=== PATIENT | female | born 1935 | race Caucasian/White ===

== ENCOUNTER 2016-07-06 15:47 | Inpatient (IN) | payer OTHER, MEDICARE ==
[~2016-07-06] VITALS: Ht 149.9 cm; Wt 46.2 kg
[~2016-07-06 15:47] MED LIST: ALPR.25 PO; AMLO10 PO; ARTISOL2 EACH EYE; CEFT500T3 PO; COLA100C3 PO; DOCU100C PO; LEVA750T PO; MACR100C2 PO; MEGE40TA PO; METO25TA3 PO; MULT-135 PO; PANT40TA3 PO; PRED20 PO
[2016-07-06] MEDS ORDERED: SODIUM CHLORIDE 0.9% FLUSH 5 ML FLUSH IVF PRN (16:45)
[2016-07-06 17:24] VITALS: BP 136/77; PULSE 94; RESP 12; TEMP 97.1; O2SAT 97
[2016-07-06 17:33] LABS: AUTOMATED NEUTROPHIL # 8.9 TH/MM3 (1.8-7.7); BASOPHIL # 0.1 TH/MM3 (0-0.2); BASOPHIL % 0.5 % (0.0-2.0); EOSINOPHIL % 0.3 % (0.0-4.0); HEMATOCRIT 39.9 % (35.0-46.0); HEMO FLAGS DIFF FINAL; LYMPH % 21.7 % (9.0-44.0); LYMPHOCYTE # 2.7 TH/MM3 (1.0-4.8); MEAN CELL VOLUME 92.2 FL (80.0-100.0); MEAN CORPUSCULAR HEMOGLOBIN 32.3 PG (27.0-34.0); MONO % 5.9 % (0.0-8.0); NEUT % 71.6 % (16.0-70.0); PLATELET COUNT 128 TH/MM3 (150-450); RED BLOOD COUNT 4.32 MIL/MM3 (4.00-5.30); WHITE BLOOD COUNT 12.5 TH/MM3 (4.0-11.0)
[2016-07-06 17:46] LABS: APTT (PATIENT) 23.8 SEC (24.3-30.1); INTERNATIONAL NORMALIZED RATIO 1.1 RATIO; PROTHROMBIN TIME - PATIENT 12.1 SEC (9.8-11.6)
--- NOTE | 2016-07-06 17:49 | PD ---
HPI Chief Complaint: General Weakness Time Seen by Provider: 17:47 Travel History International Travel<30 days: No Contact w/Intl Traveler<30days: No Traveled to known affect area: No History of Present Illness HPI 81-year-old female brought in by ambulance from her home where she has home health, status post stroke and decreased ability to take care of herself. Patient was sent in due to "failure to thrive". Patient has not been eating or drinking. She states there is a lot of discourse in the home with her [id number] which causes her to be very anxious and causes her to not want to eat. She denies any pain, Fever, nausea, vomiting, abdominal pain, or other constitutional symptoms. She denies urinary symptoms. EMS reports that her heart rate was elevated upon arrival of 180 beats per minute. Patient was given a saline bolus of 1000 mL was in her heart rate decreased to 110 bpm. Patient has no known drug allergies. PFSH Past Medical History Arthritis: No Asthma: No Autoimmune Disease: No Blood Disorders: No Anxiety: No Depression: No Heart Rhythm Problems: Yes (new atrial fibrillation) Cancer: Yes (TONGUE, SKIN CA) Cardiovascular Problems: Yes (EF 50-55%) High Cholesterol: No Chemotherapy: No Chest Pain: No Congestive Heart Failure: No COPD: No Cerebrovascular Accident: Yes Diabetes: No Diminished Hearing: No Endocrine: No Gastrointestinal Disorders: Yes (constipation) GERD: No Genitourinary: Yes (UTI, incontinence) Headaches: No Hiatal Hernia: No Heparin Induced Thrombocytopen: No Hypertension: Yes (AMLODIPINE, HTN Urgency) Immune Disorder: No Implanted Vascular Access Dvce: Yes Kidney Stones: No Musculoskeletal: No Neurologic: Yes (acute left basal ganglia hemorrhage, dysarthria, dyspagia) Psychiatric: No Reproductive: No Migraines: No Radiation Therapy: No Renal Failure: No Seizures: No Sickle Cell Disease: No Sleep Apnea: No Thyroid Disease: No Ulcer: No Menopausal: Yes Past Surgical History Abdominal Surgery: No AICD: No Arteriovenous Shunt: No Cardiac Surgery: No Ear Surgery: No Endocrine Surgery: No Eye Surgery: No Genitourinary Surgery: No Gynecologic Surgery: Yes (hysterectomy) Hysterectomy: Yes Insulin Pump: No Joint Replacement: Yes (LT HIP DAVE) Neurologic Surgery: No Oral Surgery: Yes (CA OF TONGUE 20YEARS AGO) Pacemaker: No Thoracic Surgery: No Other Surgery: Yes Social History Alcohol Use: Yes (A GLASS A DAY) Tobacco Use: No (10 CIGARETTES A DAY) Substance Use: No Allergies-Medications (Allergen,Severity, Reaction): Coded Allergies: No Known Allergies (Verified , 02/02/16) Reported Meds & Prescriptions Reported Meds & Active Scripts Active Prednisone 20 Mg Tab 20 Mg PO BID 8 Days Levaquin (Levofloxacin) 750 Mg Tab 750 Mg PO DAILY 6 Days Ceftin (Cefuroxime Axetil) 500 Mg Tab 500 Mg PO BID 3 Days Reported Pantoprazole (Pantoprazole Sodium) 40 Mg Tab 40 Mg PO DAILY Xanax (Alprazolam) 0.25 Mg Tab 0.25 Mg PO Q8H PRN Norvasc (Amlodipine Besylate) 10 Mg Tab 10 Mg PO DAILY Multi Vitamin (Multiple Vitamin) 1 Tab Tab 1 Tab PO DAILY Docusate Sodium 100 Mg Cap 100 Mg PO BID Metoprolol Tartrate 25 Mg Tab 25 Mg PO BID Macrobid (Nitrofurantoin Monoh/Nitrofur Macro) 100 Mg Cap 100 Mg PO BID Colace (Docusate Sodium) 100 Mg Cap 100 Mg PO BID Megestrol (Megestrol Acetate) 40 Mg Tab 40 Mg PO BID Artificial Tears Opth Drops (Artificial Tear Solution Opth Drops) 0.1-0.3% Soln 1.4 EACH EYE Q4HR Physical Exam Narrative GENERAL: Patient appears in no obvious distress. SKIN: Warm and dry. Normal color. Poor turgor with tenting present. HEAD: Atraumatic. Normocephalic. EYES: Pupils equal and round. No scleral icterus. No injection or drainage. ENT: No nasal bleeding or discharge. Mucous membranes pink and dry. Pharynx is normal. Airway is patent. NECK: Trachea midline. No JVD. Neck is supple and nontender. CARDIOVASCULAR: Irregular rate and rhythm. No murmurs appreciated time of exam. RESPIRATORY: No accessory muscle use. Clear to auscultation. Breath sounds equal bilaterally. GASTROINTESTINAL: Abdomen soft, non-tender, nondistended. Hepatic and splenic margins not palpable. MUSCULOSKELETAL: Extremities without clubbing, cyanosis, or edema. No obvious deformities. NEUROLOGICAL: Awake and alert. No obvious cranial nerve deficits. Patient has right-sided weakness in the lower extremity and mildly in the right hand and arm. Normal speech. PSYCHIATRIC: Appropriate mood and affect; insight and judgment normal. Data Data Last Documented VS Vital Signs Date Time Temp Pulse Resp B/P Pulse Ox O2 Delivery O2 Flow Rate FiO2 07/06/16 22:30 87 22 135/77 94 Room Air 07/06/16 17:24 97.1 Orders Electrocardiogram (07/06/16 16:41) B-Type Natriuretic Peptide (07/06/16 16:41) Ckmb (Isoenzyme) Profile (07/06/16 16:41) Complete Blood Count With Diff (07/06/16 16:41) Comprehensive Metabolic Panel (07/06/16 16:41) Magnesium (Mg) (07/06/16 16:41) Prothrombin Time / Inr (Pt) (07/06/16 16:41) Act Partial Throm Time (Ptt) (07/06/16 16:41) Troponin I (07/06/16 16:41) Ecg Monitoring (07/06/16 16:41) Bilateral Bp Monitoring (07/06/16 16:41) Iv Access Insert/Monitor (07/06/16 16:41) Oximetry (07/06/16 16:41) Oxygen Administration (07/06/16 16:41) Sodium Chloride 0.9% Flush (Ns Flush) (07/06/16 16:45) Cath For Specimen (07/06/16 16:41) Urinalysis - C+S If Indicated (07/06/16 20:20) Chest, Single Ap (07/06/16 ) Labs Laboratory Tests Test 07/06/16 17:09 White Blood Count 12.5 TH/MM3 Red Blood Count 4.32 MIL/MM3 Hemoglobin 13.9 GM/DL Hematocrit 39.9 % Mean Corpuscular Volume 92.2 FL Mean Corpuscular Hemoglobin 32.3 PG Mean Corpuscular Hemoglobin 35.0 % Concent Red Cell Distribution Width 14.0 % Platelet Count 128 TH/MM3 Mean Platelet Volume 9.2 FL Neutrophils (%) (Auto) 71.6 % Lymphocytes (%) (Auto) 21.7 % Monocytes (%) (Auto) 5.9 % Eosinophils (%) (Auto) 0.3 % Basophils (%) (Auto) 0.5 % Neutrophils # (Auto) 8.9 TH/MM3 Lymphocytes # (Auto) 2.7 TH/MM3 Monocytes # (Auto) 0.7 TH/MM3 Eosinophils # (Auto) 0.0 TH/MM3 Basophils # (Auto) 0.1 TH/MM3 CBC Comment DIFF FINAL Differential Comment Prothrombin Time 12.1 SEC Prothromb Time International 1.1 RATIO Ratio Activated Partial 23.8 SEC Thromboplast Time Sodium Level 135 MEQ/L Potassium Level 3.2 MEQ/L Chloride Level 98 MEQ/L Carbon Dioxide Level 24.7 MEQ/L Anion Gap 12 MEQ/L Blood Urea Nitrogen 16 MG/DL Creatinine 1.02 MG/DL Estimat Glomerular Filtration 52 ML/MIN Rate Random Glucose 91 MG/DL Calcium Level 8.8 MG/DL Magnesium Level 2.1 MG/DL Total Bilirubin 0.4 MG/DL Aspartate Amino Transf 15 U/L (AST/SGOT) Alanine Aminotransferase 14 U/L (ALT/SGPT) Alkaline Phosphatase 66 U/L Total Creatine Kinase 58 U/L Troponin I 0.05 NG/ML B-Type Natriuretic Peptide 82 PG/ML Total Protein 7.3 GM/DL Albumin 3.3 GM/DL [facility] Medical Decision Making Medical Screen Exam Complete: Yes Emergency Medical Condition: Yes Differential Diagnosis Dehydration. Loss of appetite. Weakness. History CVA. Narrative Course Patient is medically stable at time of exam. EKG is ordered. Labs ordered including CBC, CMP, urinalysis, proBNP, PT PTT and INR. Chest x-ray is ordered. Chest x-ray shows diffuse increased interstitial markings suggestive of edema. Patient is moved to echo pod and discussed with Dr. Martin, who sees the patient as well. 2300 hrs. patient continues to be stable, urinalysis is still pending. CBC shows mild leukocytosis of 12.5 otherwise no acute findings. Chemistry shows sodium 135, potassium 3.2, creatinine is 1.02, and albumin is 3.3. Coags show PT of 12.1, INR 1.1 Patient care is assumed by Dr. Martin at 2300 hrs. She will determine disposition. Condition: Stable Mauricio Kim Jul 06, 2016 17:49
[2016-07-06 17:52] LABS: ANION GAP 12 MEQ/L (5-15); AST (GOT) 15 U/L (15-37); BICARBONATE 24.7 MEQ/L (21.0-32.0); BLOOD UREA NITROGEN 16 MG/DL (7-18); CHLORIDE 98 MEQ/L (98-107); GLOMERULAR FILTRATION RATE 52 ML/MIN (>89); MAGNESIUM 2.1 MG/DL (1.5-2.5); POTASSIUM 3.2 MEQ/L (3.5-5.1); SODIUM (NA) 135 MEQ/L (136-145)
[2016-07-06 17:57] LABS: ALKALINE PHOSPHATASE 66 U/L (45-117); ALT (GPT) 14 U/L (10-53); TOTAL BILIRUBIN ADULT 0.4 MG/DL (0.2-1.0)
[2016-07-06 18:00] LABS: CREATINE KINASE 58 U/L (26-192)
--- NOTE | 2016-07-06 21:01 | RADRPT ---
EXAM DATE/TIME: 07/06/2016 20:39 [facility] COMPARISON: CHEST SINGLE AP, March 25, 2016, 13:09. INDICATIONS : Short of breath. MEDICAL HISTORY : Stroke. SURGICAL HISTORY : None. ENCOUNTER: Initial ACUITY: 1 week PAIN SCORE: 0/10 LOCATION: Bilateral chest FINDINGS: The heart size is normal. The lungs demonstrate diffuse increased interstitial markings. Significan t effusions are not seen. Calcifications are seen at the aortic arch. The aortic arch appears widene d. CONCLUSION: Diffuse increased interstitial markings likely representing edema. Damion Johnson MD on July 06, 2016 at 20:53 Board Certified Radiologist. This report was verified electronically.
--- NOTE | 2016-07-06 21:19 | PD ---
Physical Exam Date Seen by Provider: Jul 06, 2016 Time Seen by Provider: 20:10 Narrative The patient was brought to us by [facility] for failure to thrive. Data Data Last Documented VS Vital Signs Date Time Temp Pulse Resp B/P Pulse Ox O2 Delivery O2 Flow Rate FiO2 07/07/16 00:33 78 22 122/71 94 Room Air 07/06/16 17:24 97.1 Orders Electrocardiogram (07/06/16 16:41) B-Type Natriuretic Peptide (07/06/16 16:41) Ckmb (Isoenzyme) Profile (07/06/16 16:41) Complete Blood Count With Diff (07/06/16 16:41) Comprehensive Metabolic Panel (07/06/16 16:41) Magnesium (Mg) (07/06/16 16:41) Prothrombin Time / Inr (Pt) (07/06/16 16:41) Act Partial Throm Time (Ptt) (07/06/16 16:41) Troponin I (07/06/16 16:41) Ecg Monitoring (07/06/16 16:41) Bilateral Bp Monitoring (07/06/16 16:41) Iv Access Insert/Monitor (07/06/16 16:41) Oximetry (07/06/16 16:41) Oxygen Administration (07/06/16 16:41) Sodium Chloride 0.9% Flush (Ns Flush) (07/06/16 16:45) Cath For Specimen (07/06/16 16:41) Urinalysis - C+S If Indicated (07/06/16 20:20) Chest, Single Ap (07/06/16 ) Sodium Chlor 0.9% 1000 Ml Inj (Ns 1000 M (07/07/16 00:30) Urine Culture (07/07/16 01:13) Ceftriaxone Inj (Rocephin Inj) (07/07/16 01:45) Labs Laboratory Tests Test 07/06/16 07/07/16 17:09 01:13 White Blood Count 12.5 TH/MM3 Red Blood Count 4.32 MIL/MM3 Hemoglobin 13.9 GM/DL Hematocrit 39.9 % Mean Corpuscular Volume 92.2 FL Mean Corpuscular Hemoglobin 32.3 PG Mean Corpuscular Hemoglobin 35.0 % Concent Red Cell Distribution Width 14.0 % Platelet Count 128 TH/MM3 Mean Platelet Volume 9.2 FL Neutrophils (%) (Auto) 71.6 % Lymphocytes (%) (Auto) 21.7 % Monocytes (%) (Auto) 5.9 % Eosinophils (%) (Auto) 0.3 % Basophils (%) (Auto) 0.5 % Neutrophils # (Auto) 8.9 TH/MM3 Lymphocytes # (Auto) 2.7 TH/MM3 Monocytes # (Auto) 0.7 TH/MM3 Eosinophils # (Auto) 0.0 TH/MM3 Basophils # (Auto) 0.1 TH/MM3 CBC Comment DIFF FINAL Differential Comment Prothrombin Time 12.1 SEC Prothromb Time International 1.1 RATIO Ratio Activated Partial 23.8 SEC Thromboplast Time Sodium Level 135 MEQ/L Potassium Level 3.2 MEQ/L Chloride Level 98 MEQ/L Carbon Dioxide Level 24.7 MEQ/L Anion Gap 12 MEQ/L Blood Urea Nitrogen 16 MG/DL Creatinine 1.02 MG/DL Estimat Glomerular Filtration 52 ML/MIN Rate Random Glucose 91 MG/DL Calcium Level 8.8 MG/DL Magnesium Level 2.1 MG/DL Total Bilirubin 0.4 MG/DL Aspartate Amino Transf 15 U/L (AST/SGOT) Alanine Aminotransferase 14 U/L (ALT/SGPT) Alkaline Phosphatase 66 U/L Total Creatine Kinase 58 U/L Troponin I 0.05 NG/ML B-Type Natriuretic Peptide 82 PG/ML Total Protein 7.3 GM/DL Albumin 3.3 GM/DL Urine Color LIGHT-YELLOW Urine Turbidity HAZY Urine pH 7.0 Urine Specific [place] 1.009 Urine Protein NEG mg/dL Urine Glucose (UA) NEG mg/dL Urine Ketones NEG mg/dL Urine Occult Blood TRACE Urine Nitrite POS Urine Bilirubin NEG Urine Urobilinogen LESS THAN 2.0 MG/DL Urine Leukocyte Esterase LARGE Urine RBC 3 /hpf Urine WBC /hpf Urine WBC Clumps FEW Urine Bacteria MANY /hpf Microscopic Urinalysis Comment CATH-CULTURE IND MDM Supervised Visit with JESSI: Yes Narrative Course I, Dr. Martin, have reviewed the advance practice practitioner's documentation and am in agreement, met with the patient face to face, made the diagnosis, and the medical decision making was done by me. *My assessment and Findings: The patient is awake and alert and complaining that she is hungry and tired. Her lungs sounded clear. She was able to speak in complete sentences without any respiratory distress. Diagnosis Primary Impression: UTI (urinary tract infection) Qualified Code: N30.00 - Acute cystitis without hematuria Admitting Information Admitting Physician Requests: Observation Condition: Stable Yolanda Martin MD Jul 06, 2016 21:19
[2016-07-06 22:30] VITALS: BP 135/77; PULSE 87; RESP 22; O2SAT 94
[2016-07-06] MEDS ORDERED: FURO20TA PO (23:36)
[2016-07-06] MEDS ORDERED: POTA-243 PO (23:36)
[2016-07-07] MEDS ORDERED: SODIUM CHLOR 0.9% 1000 ML INJ 1,000 ML IV ONE (00:30)
[2016-07-07 00:33] VITALS: BP 122/71; PULSE 78; RESP 22; O2SAT 94
[2016-07-07 01:36] LABS: BACTERIA, URINE MANY /hpf; BLOOD, URINE TRACE (NEG); GLUCOSE,URINE NEG (NEG); KETONE, URINE NEG (NEG); NITRITE,URINE POS (NEG); URINE COLOR LIGHT-YELLOW (YELLW/STRAW)
[2016-07-07 01:37] LABS: COMMENT (UR) CATH-CULTURE IND; CULTURE IF INDICATED CATH CULTURE IND
[2016-07-07] MEDS ORDERED: cefTRIAXone INJ 1,000 MG in SODIUM CHLORIDE 0.9% INJ 100 ML IV ONE (01:45)
[2016-07-07] MEDS ORDERED: SODIUM CHLOR 0.9% 1000 ML INJ 1,000 ML IV SCH (01:51)
[2016-07-07] MEDS ORDERED: ACETAMINOPHEN/HYDROcodone 325 MG/5 MG TAB PO PRN (02:00)
[2016-07-07] MEDS ORDERED: ALPRAZolam 0.25 MG TAB PO PRN (02:00)
[2016-07-07] MEDS ORDERED: ACETAMINOPHEN/HYDROcodone 325 MG/10 MG TAB PO PRN (02:00)
[2016-07-07] MEDS ORDERED: ONDANSETRON HCL 4 MG/2 ML VIAL IVP PRN (02:00)
[2016-07-07] MEDS ORDERED: SODIUM CHLORIDE 0.9% FLUSH 5 ML FLUSH FLUSH PRN (02:00)
[2016-07-07] MEDS ORDERED: ACETAMINOPHEN 325 MG TAB PO PRN (02:00)
[2016-07-07] MEDS ORDERED: BISACODYL 10 MG SUPP PR PRN (02:00)
[2016-07-07 03:48] VITALS: BP 117/64; PULSE 69; RESP 18; O2SAT 95
--- NOTE | 2016-07-07 04:37 | HHI.HP ---
HPI Service [facility] Primary Care Physician Jose Cruz Arellano MD Admission Diagnosis UTI Diagnoses: (1) UTI (urinary tract infection) Diagnosis: Principal (2) Hypokalemia Diagnosis: Principal (3) Renal insufficiency Diagnosis: Principal Travel History International Travel<30 Days: No Contact w/Intl Traveler <30 Da: No Traveled to Known Affected Are: No History of Present Illness This is an 81-year-old female with a PMH of A. fib, CHF (Echo 01/31/16 w/ EF 50- 55%), HTN and h/o CVA who was brought to the ER by EMS for Failure to Thrive. Currently under Home Health after CVA, noted by RN to have decreased PO intake x1 wk. Denies fever, chills, abdominal pain, nausea, vomiting or diarrhea. On arrival, BP 136/77, HR 94, O2 sat 97% on RA, Afebrile. WBC 12.5. K+ 3.2. Creatinine 1.02, previously 0.65 on 03/28/16. UA positive for UTI. CXR with diffuse increased interstitial markings likely representing edema. S/p Urine Culture and IV Rocephin in ER. Review of Systems Except as stated in HPI: all other systems reviewed are Neg ROS: 14 point review of systems otherwise negative. Past Family Social History Past Medical History PMH: A. fib, CHF (Echo 01/31/16 w/ EF 50-55%), HTN and h/o CVA Past Surgical History PAST SURGICAL HISTORY: Hysterectomy, Left Hip Surgery, Glossectomy Allergies: Coded Allergies: No Known Allergies (Verified , 02/02/16) Family History PAST FAMILY HISTORY: Reviewed. No h/o DM or CAD Social History PAST SOCIAL HISTORY: Drinks glass of wine daily. Smokes 1/2ppd. Negative for drugs. Physical Exam Vital Signs Vital Signs Date Time Temp Pulse Resp B/P Pulse Ox O2 Delivery O2 Flow Rate FiO2 07/07/16 03:48 69 18 117/64 95 Room Air 07/07/16 00:33 78 22 122/71 94 Room Air 07/06/16 22:30 87 22 135/77 94 Room Air 07/06/16 17:24 97.1 94 12 136/77 97 Room Air Physical Exam PE: GENERAL: Elderly female in no acute distress. HEENT: PERRLA, EOMI. No scleral icterus or conjunctival pallor. No lid lag or facial droop. CARDIOVASCULAR: Regular rate and rhythm. No obvious murmurs to auscultation. No chest tenderness to palpation. RESPIRATORY: No obvious rhonchi or wheezing. Clear to auscultation. Breath sounds equal bilaterally. GASTROINTESTINAL: Abdomen soft, non-tender, nondistended. BS normal. MUSCULOSKELETAL: Extremities without clubbing, cyanosis, or edema. No obvious deformities. NEUROLOGICAL: Awake, alert and oriented x4. Right hemiparesis, at baseline. No new focal neurologic deficits. Moving both upper and lower extremities spontaneously. Laboratory Laboratory Tests Test 07/06/16 07/07/16 17:09 01:13 White Blood Count 12.5 Red Blood Count 4.32 Hemoglobin 13.9 Hematocrit 39.9 Mean Corpuscular Volume 92.2 Mean Corpuscular Hemoglobin 32.3 Mean Corpuscular Hemoglobin 35.0 Concent Red Cell Distribution Width 14.0 Platelet Count 128 Mean Platelet Volume 9.2 Neutrophils (%) (Auto) 71.6 Lymphocytes (%) (Auto) 21.7 Monocytes (%) (Auto) 5.9 Eosinophils (%) (Auto) 0.3 Basophils (%) (Auto) 0.5 Neutrophils # (Auto) 8.9 Lymphocytes # (Auto) 2.7 Monocytes # (Auto) 0.7 Eosinophils # (Auto) 0.0 Basophils # (Auto) 0.1 CBC Comment DIFF FINAL Differential Comment Prothrombin Time 12.1 Prothromb Time International 1.1 Ratio Activated Partial 23.8 Thromboplast Time Sodium Level 135 Potassium Level 3.2 Chloride Level 98 Carbon Dioxide Level 24.7 Anion Gap 12 Blood Urea Nitrogen 16 Creatinine 1.02 Estimat Glomerular Filtration 52 Rate Random Glucose 91 Calcium Level 8.8 Magnesium Level 2.1 Total Bilirubin 0.4 Aspartate Amino Transf 15 (AST/SGOT) Alanine Aminotransferase 14 (ALT/SGPT) Alkaline Phosphatase 66 Total Creatine Kinase 58 Troponin I 0.05 B-Type Natriuretic Peptide 82 Total Protein 7.3 Albumin 3.3 Urine Color LIGHT-YELLOW Urine Turbidity HAZY Urine pH 7.0 Urine Specific [place] 1.009 Urine Protein NEG Urine Glucose (UA) NEG Urine Ketones NEG Urine Occult Blood TRACE Urine Nitrite POS Urine Bilirubin NEG Urine Urobilinogen LESS THAN 2.0 Urine Leukocyte Esterase LARGE Urine RBC 3 Urine WBC Urine WBC Clumps FEW Urine Bacteria MANY Microscopic Urinalysis Comment CATH-CULTURE IND Date/Time Procedure Status Source Growth 07/07/16 01:13 Urine Culture Received Urine Catheterized Urine Pending Result Diagram: 07/06/16 [id number] Assessment and Plan Problem List: (1) UTI (urinary tract infection) ICD Code: N39.0 Status: Acute (2) Renal insufficiency ICD Code: N28.9 Status: Acute (3) Hypokalemia ICD Code: E87.6 Status: Acute Assessment and Plan A/P: 1. UTI: U/a w/ UTI, WBC 12.5, Afebrile. S/p Urine Culture, IV Rocephin in ER. Follow up cultures, continue IV Rocephin, IVF for hydration-caution w/ h/o CHF. 2. Hypokalemia: K+ 3.2, will replace and recheck as needed. 3. MILTON: Creatinine 1.02, previously 0.65 on 03/28/16, likely secondary to acute UTI and dehydration from decreased PO intake. IVF, repeat labs in am. 4. FTT: Likely secondary to above, however will ask PT to eval. 5. DVT Prophylaxis: SCD/Teds. 6. Social work for d/c planning as needed. 7. Case discussed w/ ER physician at length. Problem Qualifiers (1) UTI (urinary tract infection): Qualified Code: N30.00 - Acute cystitis without hematuria Shelly Argueta MD Jul 07, 2016 04:37
[2016-07-07] MEDS ORDERED: POTASSIUM CHLORIDE 20 MEQ CONTROLLED RELEASE TAB PO ONE (08:00)
[2016-07-07] MEDS: METOPROLOL TARTRATE 25 MG TAB PO SCH ×2 (08:59→21:18)
[2016-07-07] MEDS: SODIUM CHLORIDE 0.9% FLUSH 5 ML FLUSH FLUSH SCH ×2 (08:59→21:22)
[2016-07-07] MEDS: PANTOPRAZOLE SOD 40 MG DELAYED RELEASE TAB PO SCH (08:59)
[2016-07-07] MEDS: DOCUSATE SODIUM 100 MG CAP PO SCH ×2 (08:59→21:00)
--- NOTE | 2016-07-07 09:16 | HHI.PR ---
Subjective Remarks Follow-up for failure to thrive. The patient states that medically she is doing well, but has not been doing well lately. She reports that she's been very weak at home and requiring a lot of help. She normally has to use a wheelchair to get around. She does not feel safe going home alone. She denies any chest pain, shortness of breath, dysuria. She states that she was taking Lasix because her legs were swelling and that caused her urinary frequency. Objective Vitals Vital Signs Date Time Temp Pulse Resp B/P Pulse Ox O2 Delivery O2 Flow Rate FiO2 07/07/16 03:48 69 18 117/64 95 Room Air 07/07/16 00:33 78 22 122/71 94 Room Air 07/06/16 22:30 87 22 135/77 94 Room Air 07/06/16 17:24 97.1 94 12 136/77 97 Room Air Result Diagram: 07/06/16 1709 07/06/16 1709 Imaging Last Impressions Chest X-Ray 07/06/16 0000 Signed Impressions: Service Date/Time: June 20:39 - CONCLUSION: Diffuse increased interstitial markings likely representing edema. Damion Johnson MD Objective Remarks GENERAL: Pleasant, frail elderly lady. In no acute distress. SKIN: Warm and dry. No lesions noted. HEENT: Normocephalic. Pupils equal and round. Mucous membranes pink and moist. CARDIOVASCULAR: Regular rate and rhythm. No murmur appreciated. RESPIRATORY: No accessory muscle use. Clear to auscultation. Breath sounds equal bilaterally. GASTROINTESTINAL: Abdomen soft, non-tender, nondistended. Bowel sounds x4. MUSCULOSKELETAL: No obvious deformities. No clubbing or cyanosis. No edema. NEUROLOGICAL: Awake and alert. No focal neurological deficits. Moves upper and lower extremities spontaneously. Normal speech. PSYCHIATRIC: Appropriate mood and affect; insight and judgment normal. A/P Problem List: (1) UTI (urinary tract infection) ICD Code: N39.0 Status: Acute (2) Renal insufficiency ICD Code: N28.9 Status: Acute (3) Hypokalemia ICD Code: E87.6 Status: Acute Assessment and Plan 81-year-old female with a PMH of A. fib, CHF (Echo 01/31/16 w/ EF 50-55%), HTN and h/o CVA who presented for Failure to Thrive UTI with sepsis: U/a w/ UTI, WBC 12.5, Afebrile. WBC 12.5 and tachycardic upon admission. Continue IV Rocephin. Follow up urine culture. Caution with IVF and h/o CHF. Hypokalemia: K+ 3.2, replace orally. MILTON: Creatinine 1.02, previously 0.65 on 03/28/16. Chest x-ray with possible edema, however BNP 82 and patient appears clinically dry. Given IVF, DC. Hold Lasix. Repeat labs in am. FTT: Likely secondary to above infection and dehydration. PT to eval. Case management consult. DVT Prophylaxis: SCD/Teds. Discharge Planning Likely needs SNF at DC. Admit for urosepsis. Plan of care discussed with Dr. Quinones. Problem Qualifiers (1) UTI (urinary tract infection): Qualified Code: N30.00 - Acute cystitis without hematuria Noam Fermin Jul 07, 2016 9:16 am Uri Quinones DO Jul 07, 2016 3:38 pm
[2016-07-07 12:52] VITALS: BP 124/79; PULSE 68; RESP 18; O2SAT 100
[2016-07-07 13:45] VITALS: BP 136/72; PULSE 71; RESP 20; TEMP 96.8; O2SAT 96
[2016-07-07 16:00] VITALS: BP 121/79; PULSE 74; RESP 18; TEMP 96.7; O2SAT 95
--- NOTE | 2016-07-07 17:01 | EKG ---
Date Performed: 07/06/2016 Time Performed: 22:28:50 PTAGE: 81 years EKG: Sinus rhythm Compared to prior tracing no significant change NORMAL ECG PREVIOUS TRACING : 03/25/2016 23.59 DOCTOR: Kaiden Wagoner Interpretating Date/Time 07/07/2016 16:55:47
[2016-07-07 20:00] VITALS: BP 136/73; PULSE 69; RESP 16; TEMP 96; O2SAT 96
[2016-07-07] MEDS: cefTRIAXone INJ 1,000 MG in SODIUM CHLORIDE 0.9% INJ 100 ML IV SCH (22:14)
[2016-07-08] VITALS (7 sets, daily range): BP systolic 109–133; BP diastolic 59–77; PULSE 65–72; RESP 16–18; TEMP 96.1–97.1; O2SAT 92–96
[2016-07-08] MEDS: PANTOPRAZOLE SOD 40 MG DELAYED RELEASE TAB PO SCH (08:50)
[2016-07-08] MEDS: METOPROLOL TARTRATE 25 MG TAB PO SCH ×2 (08:50→21:01)
[2016-07-08] MEDS: DOCUSATE SODIUM 100 MG CAP PO SCH ×2 (08:53→21:00)
[2016-07-08] MEDS: SODIUM CHLORIDE 0.9% FLUSH 5 ML FLUSH FLUSH SCH ×2 (09:00→21:01)
[2016-07-08 09:44] LABS: AUTOMATED NEUTROPHIL # 5.9 TH/MM3 (1.8-7.7); BASOPHIL # 0.1 TH/MM3 (0-0.2); BASOPHIL % 1.2 % (0.0-2.0); EOSINOPHIL # 0.2 TH/MM3 (0-0.4); EOSINOPHIL % 1.7 % (0.0-4.0); HEMATOCRIT 41.4 % (35.0-46.0); HEMO FLAGS DIFF FINAL; LYMPH % 26.3 % (9.0-44.0); LYMPHOCYTE # 2.4 TH/MM3 (1.0-4.8); MEAN CELL VOLUME 93.9 FL (80.0-100.0); MEAN CORPUSCULAR HEMOGLOBIN 31.9 PG (27.0-34.0); MONO % 6.4 % (0.0-8.0); NEUT % 64.4 % (16.0-70.0); PLATELET COUNT 124 TH/MM3 (150-450); RED BLOOD COUNT 4.41 MIL/MM3 (4.00-5.30); RED CELL DISTRIBUTION WIDTH 13.5 % (11.6-17.2); WHITE BLOOD COUNT 9.2 TH/MM3 (4.0-11.0)
[2016-07-08 09:55] LABS: ALKALINE PHOSPHATASE 67 U/L (45-117); ALT (GPT) 13 U/L (10-53); ANION GAP 11 MEQ/L (5-15); AST (GOT) 16 U/L (15-37); BICARBONATE 21.4 MEQ/L (21.0-32.0); BLOOD UREA NITROGEN 8 MG/DL (7-18); CHLORIDE 103 MEQ/L (98-107); GLOMERULAR FILTRATION RATE 89 ML/MIN (>89); POTASSIUM 3.1 MEQ/L (3.5-5.1); SODIUM (NA) 135 MEQ/L (136-145); TOTAL BILIRUBIN ADULT 0.4 MG/DL (0.2-1.0)
--- NOTE | 2016-07-08 16:04 | HHI.PR ---
Subjective Remarks Follow up for UTI, failure to thrive. Patient was living with her son and daughter in law. She has been having arguments for sometime and does not feel comfortable going back. She wants to go to a rehab and from there she wants to go to [place] to live with her other son. Currently she denies any chest pain , shortness of breath, fever, chills. Objective Vitals Vital Signs Date Time Temp Pulse Resp B/P Pulse Ox O2 Delivery O2 Flow Rate FiO2 07/08/16 12:00 65 18 109/70 95 07/08/16 08:00 96.4 68 18 123/59 93 07/08/16 04:00 96.2 70 16 130/73 95 07/08/16 01:11 96 Nasal Cannula 07/08/16 00:00 96.1 72 16 133/77 95 07/07/16 20:00 96.0 69 16 136/73 96 I/O 07/07/16 07/07/16 07/07/16 07/08/16 07/08/16 07/08/16 07:00 15:00 23:00 07:00 15:00 23:00 Intake Total 998 ml 726 ml 787 ml 480 ml Output Total 400 ml Balance 998 ml 726 ml 387 ml 480 ml Intake Oral 240 ml 240 ml 480 ml IV Total 998 ml 486 ml 547 ml Output Urine Total 400 ml # Voids 1 2 Result Diagram: 07/08/16 0900 07/08/16 0900 Imaging Last Impressions Chest X-Ray 07/06/16 0000 Signed Impressions: Service Date/Time: June 20:39 - CONCLUSION: Diffuse increased interstitial markings likely representing edema. Damion Johnson MD Objective Remarks GENERAL: Alert, NAD. SKIN: Warm and dry. HEAD: Normocephalic. EYES: No scleral icterus. No injection or drainage. NECK: Supple, trachea midline. No JVD or lymphadenopathy. CARDIOVASCULAR: Regular rate and rhythm without murmurs, gallops, or rubs. RESPIRATORY: Breath sounds equal bilaterally. No accessory muscle use. GASTROINTESTINAL: Abdomen soft, non-tender, nondistended. MUSCULOSKELETAL: No cyanosis, or edema. BACK: Nontender without obvious deformity. No CVA tenderness. Procedures None. A/P Problem List: (1) UTI (urinary tract infection) ICD Code: N39.0 Status: Acute (2) Renal insufficiency ICD Code: N28.9 Status: Acute (3) Hypokalemia ICD Code: E87.6 Status: Acute Assessment and Plan 81-year-old female with a PMH of A. fib, CHF (Echo 01/31/16 w/ EF 50-55%), HTN and h/o CVA who presented for Failure to Thrive - UTI with sepsis: U/a w/ UTI, WBC 12.5, Afebrile. WBC 12.5 and tachycardic upon admission. Continue IV Rocephin. - Urine culture is growing GNR. - Hypokalemia: K+ 3.2, replace orally - 20meq Q12hrs for 5 days. - Hypertension - continue Amlodipine 10mg Qday, Metoprolol 25mg BID. - Anxiety - Continue Xanax 0.25mg Q8hrs PRN. - MILTON: Creatinine 1.02, previously 0.65 on 03/28/16. Improved to 0.64, her baseline. - Failure to thrive - questionable home environment. We will try to arrange SNF for her and patient wants to go to [place] after SNF. Full code. Will start Lovenox starting 07/09/2016. Problem Qualifiers (1) UTI (urinary tract infection): Qualified Code: N30.00 - Acute cystitis without hematuria Uri Quinones DO Jul 08, 2016 16:04
[2016-07-08] MEDS: cefTRIAXone INJ 1,000 MG in SODIUM CHLORIDE 0.9% INJ 100 ML IV SCH (23:25)
[2016-07-09] VITALS: BP 126/72; PULSE 62; RESP 16; TEMP 96.6; O2SAT 94
[2016-07-09 04:00] VITALS: BP 128/79; PULSE 67; RESP 16; TEMP 96; O2SAT 94
[2016-07-09 08:00] VITALS: BP 120/63; PULSE 61; RESP 16; TEMP 98.5; O2SAT 95
[2016-07-09] MEDS: ENOXAPARIN SODIUM 40 MG/0.4 ML SYRINGE SQ SCH (08:40)
[2016-07-09] MEDS: POTASSIUM CHLORIDE 20 MEQ CONTROLLED RELEASE TAB PO SCH ×2 (08:40→20:17)
[2016-07-09] MEDS: METOPROLOL TARTRATE 25 MG TAB PO SCH ×2 (08:41→20:17)
[2016-07-09] MEDS: SODIUM CHLORIDE 0.9% FLUSH 5 ML FLUSH FLUSH SCH ×2 (08:41→20:17)
[2016-07-09] MEDS: PANTOPRAZOLE SOD 40 MG DELAYED RELEASE TAB PO SCH (08:41)
[2016-07-09] MEDS: DOCUSATE SODIUM 100 MG CAP PO SCH ×2 (08:52→20:16)
[2016-07-09 12:00] VITALS: BP 118/64; PULSE 63; RESP 18; TEMP 96.1; O2SAT 95
--- NOTE | 2016-07-09 12:27 | HHI.PR ---
Subjective Remarks Follow up for UTI, failure to thrive. Ms. Mead is doing well. Tolerating diet well, sitting in her chair. No acute concerns. Denies any fever, chills. Objective Vitals Vital Signs Date Time Temp Pulse Resp B/P Pulse Ox O2 Delivery O2 Flow Rate FiO2 07/09/16 08:00 98.5 61 16 120/63 95 07/09/16 04:00 96.0 67 16 128/79 94 07/09/16 00:00 96.6 62 16 126/72 94 07/08/16 20:00 97.1 68 16 113/75 93 07/08/16 16:00 96.6 67 18 127/72 92 I/O 07/08/16 07/08/16 07/08/16 07/09/16 07/09/16 07/09/16 06:59 14:59 22:59 06:59 14:59 22:59 Intake Total 787 ml 480 ml 240 ml 240 ml Output Total 400 ml Balance 387 ml 480 ml 240 ml 240 ml Intake Oral 240 ml 480 ml 240 ml 240 ml IV Total 547 ml Output Urine Total 400 ml # Voids 2 2 3 # Bowel Movements 1 1 Result Diagram: 07/08/16 0900 07/08/16 0900 Imaging Last Impressions Chest X-Ray 07/06/16 0000 Signed Impressions: Service Date/Time: June 20:39 - CONCLUSION: Diffuse increased interstitial markings likely representing edema. Damion Johnson MD Objective Remarks GENERAL: Alert, NAD. SKIN: Warm and dry. HEAD: Normocephalic. EYES: No scleral icterus. No injection or drainage. NECK: Supple, trachea midline. No JVD or lymphadenopathy. CARDIOVASCULAR: Regular rate and rhythm without murmurs, gallops, or rubs. RESPIRATORY: Breath sounds equal bilaterally. No accessory muscle use. GASTROINTESTINAL: Abdomen soft, non-tender, nondistended. MUSCULOSKELETAL: No cyanosis, or edema. BACK: Nontender without obvious deformity. No CVA tenderness. Procedures None. A/P Problem List: (1) UTI (urinary tract infection) ICD Code: N39.0 Status: Acute (2) Renal insufficiency ICD Code: N28.9 Status: Acute (3) Hypokalemia ICD Code: E87.6 Status: Acute Assessment and Plan 81-year-old female with a PMH of A. fib, CHF (Echo 01/31/16 w/ EF 50-55%), HTN and h/o CVA who presented for Failure to Thrive - UTI with sepsis: U/a w/ UTI, WBC 12.5, Afebrile. WBC 12.5 and tachycardic upon admission. Continue IV Rocephin. - Urine culture is growing E. Coli, sensitive to Ceftriaxone. - Hypokalemia: K+ 3.2, replace orally - 20meq Q12hrs for 5 days. - Hypertension - continue Amlodipine 10mg Qday. Decrease metoprolol 25mg BID to metoprolol 12.5mg BID. - If heart rate remains within reasonable range, we will try to discontinue Metoprolol. - Anxiety - Continue Xanax 0.25mg Q8hrs PRN. - [place]: Creatinine 1.02, previously 0.65 on 03/28/16. Improved to 0.64, her baseline. - Failure to thrive - questionable home environment. We will try to arrange SNF for her and patient wants to go to [place] after SNF. Full code. Lovenox. Problem Qualifiers (1) UTI (urinary tract infection): Qualified Code: N30.00 - Acute cystitis without hematuria Uri Quinones DO Jul 09, 2016 12:27
[2016-07-09 16:00] VITALS: BP 119/70; PULSE 62; RESP 18; TEMP 96; O2SAT 97
[2016-07-09 20:00] VITALS: BP 115/58; PULSE 55; RESP 16; TEMP 97.1; O2SAT 96
[2016-07-09] MEDS ORDERED: PILL SPLITTER OTHER PRN (23:30)
[2016-07-09] MEDS: cefTRIAXone INJ 1,000 MG in SODIUM CHLORIDE 0.9% INJ 100 ML IV SCH (23:53)
[2016-07-10] VITALS: BP 118/60; PULSE 59; RESP 16; TEMP 96.7; O2SAT 95
[2016-07-10 04:00] VITALS: BP 109/70; PULSE 61; RESP 17; TEMP 97.6; O2SAT 95
[2016-07-10 08:00] VITALS: BP 113/68; PULSE 73; RESP 18; TEMP 97; O2SAT 94
[2016-07-10] MEDS: DOCUSATE SODIUM 100 MG CAP PO SCH ×2 (08:23→21:35)
[2016-07-10] MEDS: POTASSIUM CHLORIDE 20 MEQ CONTROLLED RELEASE TAB PO SCH ×2 (08:24→21:35)
[2016-07-10] MEDS: PANTOPRAZOLE SOD 40 MG DELAYED RELEASE TAB PO SCH (08:24)
[2016-07-10] MEDS: METOPROLOL TARTRATE 25 MG TAB PO SCH ×2 (08:25→21:35)
[2016-07-10] MEDS: SODIUM CHLORIDE 0.9% FLUSH 5 ML FLUSH FLUSH SCH ×2 (08:25→21:36)
[2016-07-10] MEDS: ENOXAPARIN SODIUM 40 MG/0.4 ML SYRINGE SQ SCH (08:25)
[2016-07-10] MEDS ORDERED: METO25TA3 PO (14:16)
[2016-07-10] MEDS ORDERED: ALPR.25 PO (14:16)
[2016-07-10] MEDS ORDERED: POTA-243 PO (14:17)
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
[2016-07-10 16:30] VITALS: BP 124/64; PULSE 84; RESP 18; TEMP 96.1; O2SAT 94
[2016-07-10 20:00] VITALS: BP 115/66; PULSE 62; RESP 18; TEMP 97.7; O2SAT 95
[2016-07-10] MEDS: cefTRIAXone INJ 1,000 MG in SODIUM CHLORIDE 0.9% INJ 100 ML IV SCH (23:00)
[2016-07-11] VITALS: BP 131/75; PULSE 66; RESP 18; TEMP 97.3; O2SAT 94
[2016-07-11 04:00] VITALS: BP 133/77; PULSE 67; RESP 18; TEMP 96.3; O2SAT 92
[2016-07-11 08:00] VITALS: BP 133/71; PULSE 69; RESP 18; TEMP 97; O2SAT 94
[2016-07-11] MEDS: PANTOPRAZOLE SOD 40 MG DELAYED RELEASE TAB PO SCH (08:33)
[2016-07-11] MEDS: DOCUSATE SODIUM 100 MG CAP PO SCH (08:33)
[2016-07-11] MEDS: POTASSIUM CHLORIDE 20 MEQ CONTROLLED RELEASE TAB PO SCH (08:33)
[2016-07-11] MEDS: ENOXAPARIN SODIUM 40 MG/0.4 ML SYRINGE SQ SCH (08:34)
[2016-07-11] MEDS: SODIUM CHLORIDE 0.9% FLUSH 5 ML FLUSH FLUSH SCH (08:34)
[2016-07-11 12:00] VITALS: BP 123/61; PULSE 73; RESP 18; TEMP 96.3; O2SAT 92
[2016-07-11] MEDS ORDERED: MIRA33504 PO (14:34)
[2016-07-11 16:00] VITALS: BP 122/70; PULSE 90; RESP 18; TEMP 97.1; O2SAT 96
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
== END 2016-07-11 18:30 | DRG 872 ==
LOC: NEPE 15:47 → NEDA 07-07 01:54 → NEDH 07-07 05:54 → OBSVTOIN 07-07 09:09 → NEDH 07-07 12:28 → HOCB 07-07 13:45
PROVIDERS: ADMIT Hospitalist; ATTEND Hospitalist
DX: A41.9 Sepsis, unspecified organism (principal); N17.9 Acute kidney failure, unspecified; I48.91 Unspecified atrial fibrillation; I50.9 Heart failure, unspecified; R62.7 Adult failure to thrive; R13.10 Dysphagia, unspecified; E86.0 Dehydration; N30.00 Acute cystitis without hematuria; I10 Essential (primary) hypertension; E87.6 Hypokalemia; R47.1 Dysarthria and anarthria; Z85.810 Personal history of malignant neoplasm of tongue; F17.210 Nicotine dependence, cigarettes, uncomplicated; Z86.73 Personal history of transient ischemic attack (TIA), and cerebral infarction without residual deficits; N28.9 Disorder of kidney and ureter, unspecified; R35.0 Frequency of micturition; F41.9 Anxiety disorder, unspecified
CPT/HCPCS: 71010; 80053; 81001; 82550; 83735; 83880; 84484; 85025; 85610; 85730; 87077; 87086; 87186; 93005; 96360; G8987-GP; G8988-GP; J0696; J1650; J7030; P9612